=== PATIENT | female | born 1955 | race American Indian/Alaskan Native ===

== ENCOUNTER 2018-05-30 11:14 | Outpatient (CLI) | payer MEDICARE ==
--- NOTE | 2018-05-30 16:37 | Magnetic Resonance Report ---
MRI BRAIN WITHOUT CONTRAST: 05/30/18 11:14:00 CLINICAL: Abnormalities of gait and mobility. TECHNIQUE: Axial diffusion, T1, T2, gradient echo T2*, coronal and axial FLAIR and sagittal T1 sequences on a 1.5 Niya magnet. FINDINGS: The sulci are diffusely enlarged for age. The ventricles are normal size. No restricted diffusion. Large area of encephalomalacia involving most of the right cerebellar hemisphere. Moderately extensive bilateral periventricular white matter and deep white matter multifocal hyperintensities on FLAIR and T2. The brainstem is relatively small and there is abnormal central pontine hyperintense signal on FLAIR and T2. Several focal hypointensities on the gradient echo sequence consistent with chronic micro-bleeds. These involve the right frontal cortex, left thalamus, right monie and right cerebellum. No mass or mass effect. No hemorrhage, edema or extra-axial collection. Normal pituitary and optic chiasm. The brainstem and cerebellum are normal. Intact vascular flow voids except for absent right vertebral artery flow-void. Normal sinuses. The orbits, and soft tissues are normal. A right frontal judith hole and otherwise intact calvarium. Intact skull base. IMPRESSION: 1. No evidence of acute/subacute infarct or hemorrhage. 2. Global cortical atrophy, moderate chronic white matter microangiopathy and atrophy of the brainstem. 3. A large chronic right cerebellar infarct. 4. 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 5. 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 The differential diagnosis includes demyelination, central pontine myelolysis and arteriosclerotic rarefaction.
== END 2018-05-30 11:15 | disposition home or self-care (01) ==
LOC: MRI 11:14
PROVIDERS: ATTEND Psychiatry & Neurology Neurology
DX: G31.9 Degenerative disease of nervous system, unspecified (principal); I63.9 Cerebral infarction, unspecified
CPT/HCPCS: 70551

== ENCOUNTER 2018-10-15 09:53 | Outpatient (CLI) | payer MEDICARE ==
--- NOTE | 2018-10-15 16:02 | Vascular Lab Report ---
FINAL REPORT EXAM: VL RENAL VASCULATURE HISTORY: HTN COMPARISON: None. TECHNIQUE: Duplex Doppler ultrasound of the renal arteries and aorta was performed. FINDINGS: The right kidney measures 11 centimeters in length. There is normal cortical thickness. There is no h ydronephrosis. There is no echogenic focus or mass. The left kidney measures 11.1 centimeters in length. There is normal cortical thickness. There no hyd ronephrosis. There is no echogenic focus or mass. There are sharp systolic upstrokes of the right renal artery. Peak systolic velocity is 68.2 centimet ers/second. The resistive indices of the intrarenal arteries ranges from 0.72-0.77. There are sharp systolic upstrokes of the left renal artery. Peak systolic velocity is 122.5 centimet ers/second. There a stiff indices of the intrarenal arteries ranges from 0.7-0.78. The peak systolic velocity of the aorta is 86 centimeters/second. The peak systolic velocity ratio between the right renal artery and the aorta is 0.79. The peak systolic velocity ratio between the left renal artery and the aorta is 1.42. IMPRESSION: Normal Doppler evaluation of the renal arteries without evidence for renal artery stenosis.
== END 2018-10-15 09:54 | disposition home or self-care (01) ==
LOC: VAS 09:53
PROVIDERS: ATTEND Internal Medicine Nephrology
DX: E11.22 Type 2 diabetes mellitus with diabetic chronic kidney disease (principal); I11.0 Hypertensive heart disease with heart failure; R80.9 Proteinuria, unspecified; R94.4 Abnormal results of kidney function studies; N18.9 Chronic kidney disease, unspecified
CPT/HCPCS: 93975